=== PATIENT | male | born 1990 | race Caucasian/White ===

== ENCOUNTER 2017-01-04 17:37 | Emergency (ER) | payer MEDICAID ==
[~2017-01-04] VITALS: Ht 182.9 cm; Wt 120.0 kg
[~2017-01-04 17:37] MED LIST: BENT20TA PO; WARF5 PO
[2017-01-04 17:39] VITALS: BP 174/100; PULSE 93; RESP 16; TEMP 98.7; O2SAT 98
--- NOTE | 2017-01-04 18:09 | PD ---
HPI Chief Complaint: Musculoskeletal Complaint Time Seen by Provider: 18:07 Travel History International Travel<30 days: No Contact w/Intl Traveler<30days: No Traveled to known affect area: No History of Present Illness HPI 26yo M c/o R foot and ankle pain x 4 days and calf pain x last 2 days. 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 Denies anticoagulants; stop taking anticoagulant about a year ago because ultrasound was negative for blood clots. He stopped them on his own and was not instructed to stop them by a doctor. Denies new or recent injury. Denies Fever , vomiting. Denies Paraesthesias, loss of sensation, decreased range of motion , decreased strength to the affected extremity. Denies chest pain, shortness of breath, hemoptysis, cough. Denies recent surgery or travel. Has no other medical complaints. No known allergies. No other modifying factors or associated signs and symptoms. PFSH Past Medical History Hx Anticoagulant Therapy: Yes Autoimmune Disease: No Cancer: No Cardiovascular Problems: No Cerebrovascular Accident: No Diminished Hearing: No Endocrine: No Gastrointestinal Disorders: No Genitourinary: No Headaches: No Immune Disorder: No Implanted Vascular Access Dvce: No Musculoskeletal: No Neurologic: No Psychiatric: No Reproductive: No Respiratory: No Immunizations Current: No Migraines: No Seizures: No Past Surgical History Abdominal Surgery: No Cardiac Surgery: No Ear Surgery: No Endocrine Surgery: No Eye Surgery: No Genitourinary Surgery: No Gynecologic Surgery: No Neurologic Surgery: No Oral Surgery: No Thoracic Surgery: No Tonsillectomy: Yes Other Surgery: Yes (THROAT SURGERY) Social History Alcohol Use: No Tobacco Use: Yes (vapor) Substance Use: No Allergies-Medications (Allergen,Severity, Reaction): Coded Allergies: No Known Allergies (Verified , 01/04/17) Reported Meds & Prescriptions Reported Meds & Active Scripts Active Flexeril (Cyclobenzaprine HCl) 10 Mg Tab 10 Mg PO TID PRN 7 Days Ibuprofen 800 Mg Tab 800 Mg PO Q6HR PRN Review of Systems Except as stated in HPI: all other systems reviewed are Neg Physical Exam Narrative GENERAL: Well-nourished, well-developed male patient, in no acute distress; afebrile, nontoxic-appearing SKIN: Warm and dry. HEAD: Atraumatic. Normocephalic. EYES: Pupils equal and round. No scleral icterus. No injection or drainage. ENT: Mucosa pink and moist. Airway patent. NECK: Trachea midline. CARDIOVASCULAR: Regular rate and rhythm. No murmur appreciated. RESPIRATORY: Clear to auscultation. Breath sounds equal bilaterally. No wheezes , rales, or rhonchi heard. GASTROINTESTINAL: Abdomen soft, non-tender, nondistended. Positive bowel sounds. No hepato-splenomegaly, or palpable masses. No guarding. MUSCULOSKELETAL: Right lower extremity supple and non-tense with 2+ pedal pulse and sensory intact. Right foot, ankle, lower leg with mild edema and without erythema or warmth to touch. Reproducible tenderness on palpation to the posterior upper calf. No obvious deformities. No clubbing. No cyanosis. NEUROLOGICAL: Awake and alert. Oriented 3. No obvious cranial nerve deficits. Motor grossly within normal limits. Normal speech. PSYCHIATRIC: Appropriate mood and affect; insight and judgment normal. Data Data Last Documented VS Vital Signs Date Time Temp Pulse Resp B/P Pulse Ox O2 Delivery O2 Flow Rate FiO2 01/04/17 20:13 16 01/04/17 17:39 98.7 93 174/100 98 Orders Us Leg Venous Doppler (01/04/17 ) Ketorolac Inj (Toradol Inj) (01/04/17 18:15) MDM Medical Decision Making Medical Screen Exam Complete: Yes Emergency Medical Condition: Yes Medical Record Reviewed: Yes Differential Diagnosis DVT, superficial thrombosis, leg pain Narrative Course 26-year-old male with right lower leg pain 4 days. Denies injury. Patient does have history of blood clots in his spleen, liver, and heart. He stopped taking anticoagulants a year ago on his own, without instruction by his doctor. Toradol ordered. Right leg venous Doppler ultrasound ordered. 1899: Patient reported off to LATRICE Oropeza at change of shift. See her note for final patient disposition. Scripts Cyclobenzaprine (Flexeril)10 Mg Tab10 Mg PO TID PRN (MUSCLE SPASM) 7 Days Ref 0 Prov:Layne Toth 01/04/17 Ibuprofen 800 Mg [id number] Mg PO Q6HR PRN (PAIN) #40 TAB Ref 0 Prov:Layne Toth 01/04/17 Christina Gonzalez Jan 04, 2017 18:09
[2017-01-04] MEDS ORDERED: KETOROLAC TROMETHAMINE 60 MG/2 ML (IM) VIAL IM ONE (18:15)
--- NOTE | 2017-01-04 19:54 | RADRPT ---
EXAM DATE/TIME: 01/04/2017 18:29 [facility] COMPARISON: No previous studies available for comparison. INDICATIONS : Right leg pain. MEDICAL HISTORY : Deep venous thrombosis. History of anticoagulant therapy. Tobacco use. SURGICAL HISTORY : Tonsillectomy. Throat surgery. ENCOUNTER: Initial ACUITY: 1 week PAIN SCORE: 10/10 LOCATION: Right leg. TECHNIQUE: Venous ultrasound of the leg was performed from the inguinal ligament to the proximal calf. Real-lesa e, color Doppler and spectral tracing, compression and augmentation techniques were used. FINDINGS: There is normal compressibility of the deep venous system from the inguinal region to the proximal ca lf. No echogenic clot is seen in the lumen of the common femoral, femoral, popliteal, and posterior tibial veins. There is a normal response of the venous system to proximal and distal augmentation an d respiration. CONCLUSION: Normal examination. Ervin Harvey MD on January 04, 2017 at 19:52 Board Certified Radiologist. This report was verified electronically.
[2017-01-04] MEDS ORDERED: IBUP800T23 PO (20:04)
[2017-01-04] MEDS ORDERED: CYCL1TAB29 PO (20:04)
--- NOTE | 2017-01-04 20:05 | PD ---
Physical Exam Date Seen by Provider: Jan 04, 2017 Time Seen by Provider: 20:00 Narrative For full history and physical examination please see previous provider's note. I assumed care of this patient had changes shift, at that time an ultrasound was pending to rule out DVT. Data Data Last Documented VS Vital Signs Date Time Temp Pulse Resp B/P Pulse Ox O2 Delivery O2 Flow Rate FiO2 01/04/17 17:39 98.7 93 16 174/100 98 Orders Us Leg Venous Doppler (01/04/17 ) Ketorolac Inj (Toradol Inj) (01/04/17 18:15) [facility] Supervised Visit with LASHONDA: No Interpretation(s) Vital Signs Date Time Temp Pulse Resp B/P Pulse Ox O2 Delivery O2 Flow Rate FiO2 01/04/17 17:39 98.7 93 16 174/100 98 Differential Diagnosis DVT versus strain versus spasm versus fracture versus other Narrative Course Patient is a 26-year-old male presenting for evaluation of leg and ankle pain with no preceding injury or trauma. Patient is a history of blood clots and anticoagulant use which he stopped on his own without medical advice. Ultrasound is negative for DVT. Patient is neurovascularly intact. Patient will be given prescription for anti-inflammatory medication. He is encouraged to follow-up with his primary care provider. He is encouraged to rest, ice, elevate extremity, continue range of motion exercises, avoid exacerbating activities. He was encouraged to return to emergency department for any new or worsening symptoms. Patient verbalizes understanding of instructions. Patient stable for discharge. Diagnosis Primary Impression: Leg pain Qualified Code: M79.606 - Pain of lower extremity, unspecified laterality Referrals: Primary Care Physician 2 days Patient Instructions: General Instructions, Leg Pain (ED) Additional Instruction: Take medications as directed Follow-up with primary doctor Rest, ice, elevate extremity, avoid exacerbating activities Return to emergency department for any new or worsening symptoms Med/Other Pt SpecificInfo: Prescription(s) given Scripts Cyclobenzaprine (Flexeril)10 Mg Tab10 Mg PO TID PRN (MUSCLE SPASM) 7 Days Ref 0 Prov:Layne Toth 01/04/17 Ibuprofen 800 Mg [id number] Mg PO Q6HR PRN (PAIN) #40 TAB Ref 0 Prov:Layne Toth 01/04/17 Disposition: 01 DISCHARGE HOME Condition: Stable Layne Toth Jan 04, 2017 20:04
== END 2017-01-04 20:23 | disposition home or self-care (01) ==
LOC: NEPK 17:37
DX: M79.604 Pain in right leg (principal); Z72.0 Tobacco use; Z86.2 Personal history of diseases of the blood and blood-forming organs and certain disorders involving the immune mechanism
CPT/HCPCS: 93971; 96372; 99285; J1885

== ENCOUNTER 2017-11-23 19:22 | Emergency (ER) | payer MEDICAID, OTHER ==
[~2017-11-23] VITALS: Ht 185.4 cm; Wt 129.5 kg
[~2017-11-23 19:22] MED LIST changes: -BENT20TA PO; +CYCL10TA PO; +IBUP1TAB7 PO; -WARF5 PO
[2017-11-23 19:58] VITALS: BP 168/94; PULSE 84; RESP 16; TEMP 98.3; O2SAT 100
--- NOTE | 2017-11-23 20:40 | PD ---
HPI Chief Complaint: Injury Time Seen by Provider: 20:07 Travel History International Travel<30 days: No Contact w/Intl Traveler<30days: No Traveled to known affect area: No History of Present Illness HPI 27-year-old male presents to the emergency room for evaluation of right ankle pain for the past few weeks. Patient denies any trauma or injury. Pain is moderate in severity. Localized to the ankle and worsened with plantar flexion , inversion, and inversion. No pain with dorsiflexion. No radiation. States he walked around on a broken foot for 3 weeks without knowing it and is concerned he may have broken something. 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 On the weekends his pain is "hit or miss." He has been taking [id number] Advil without relief in symptoms. 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 He does have an appointment with his pit clerk tomorrow. He denies any fever, chills, nausea, vomiting. PFSH Past Medical History Hx Anticoagulant Therapy: Yes Autoimmune Disease: No Cancer: No Cardiovascular Problems: No Cerebrovascular Accident: No Diminished Hearing: No Deep Vein Thrombosis: Yes Endocrine: No Gastrointestinal Disorders: No Genitourinary: No Headaches: No Immune Disorder: No Implanted Vascular Access Dvce: No Musculoskeletal: No Neurologic: No Psychiatric: No Reproductive: No Respiratory: No Immunizations Current: No Migraines: No Seizures: No Tetanus Vaccination: < 5 Years Past Surgical History Abdominal Surgery: No Cardiac Surgery: No Ear Surgery: No Endocrine Surgery: No Eye Surgery: No Genitourinary Surgery: No Gynecologic Surgery: No Neurologic Surgery: No Oral Surgery: Yes (throat surgery ) Thoracic Surgery: No Tonsillectomy: Yes Other Surgery: Yes (THROAT SURGERY) Social History Alcohol Use: No Tobacco Use: Yes Substance Use: No Allergies-Medications (Allergen,Severity, Reaction): Coded Allergies: No Known Allergies (Verified , 01/04/17) Reported Meds & Prescriptions Reported Meds & Active Scripts Active Diclofenac Sodium DR (Diclofenac Sodium) 75 Mg Tabdr 75 Mg PO BID Flexeril (Cyclobenzaprine HCl) 10 Mg Tab 10 Mg PO TID PRN 7 Days Ibuprofen 800 Mg Tab 800 Mg PO Q6HR PRN Review of Systems Except as stated in HPI: all other systems reviewed are Neg Physical Exam Narrative GENERAL: Well-nourished, well-developed male in no acute distress. Afebrile. Ambulatory. SKIN: Focused skin assessment warm/dry. No erythema or ecchymosis. No increased warmth. HEAD: Normocephalic. EYES: No scleral icterus. No injection or drainage. NECK: Supple, trachea midline. No JVD or lymphadenopathy. CARDIOVASCULAR: Regular rate and rhythm without murmurs, gallops, or rubs. RESPIRATORY: Breath sounds equal bilaterally. No accessory muscle use. MUSCULOSKELETAL: No cyanosis. No obvious edema. No calf tenderness. Negative Homans sign. 2+ dorsalis pedis pulse. No pain with dorsiflexion. Moderate pain with plantarflexion, eversion, and inversion. No bony tenderness to palpation of bilateral malleoli. Data Data Last Documented VS Vital Signs Date Time Temp Pulse Resp B/P (MAP) Pulse Ox O2 Delivery O2 Flow Rate FiO2 11/23/17 19:58 98.3 84 16 168/94 (118) 100 Orders Orders Ankle, Complete ([id number]) (11/23/17 ) Ed Discharge Order (11/23/17 21:01) [facility] Medical Decision Making Medical Screen Exam Complete: Yes Emergency Medical Condition: Yes Medical Record Reviewed: Yes Differential Diagnosis Fracture, sprain, strain, DVT, inflammatory arthritis, flatfoot Narrative Course 27-year-old male presents to the emergency room for evaluation of right ankle pain for the past 3 weeks. He denies any trauma or injury. Pain is worsened after he has been on his feet all day. Improves at rest. Physical exam is unremarkable. Right lower extremity is neurovascularly intact with 2+ dorsalis pedis pulse. There is no edema. Negative Homans sign. No bony tenderness to palpation. No erythema or ecchymosis. X-ray is negative. Patient is extremely flat-footed and I suspect his pain is caused by lack of support and issues. He was instructed to use shoe inserts. He has an appointment with his pit clerk tomorrow. Told to follow-up with a pit clerk or return for worsening symptoms. He understands and agrees to plan. Diagnosis Primary Impression: Right ankle pain Qualified Codes: M25.571 - Pain in right ankle and joints of right foot Referrals: Primary Care Physician Additional Instructions: Insert shoe supports. Ibuprofen and Tylenol for pain. Follow up with your pit clerk. Return as needed for worsening symptoms. Scripts Diclofenac Sodium (Diclofenac Sodium DR) 75 Mg Tabdr 75 MG PO BID, #20 TAB 0 Refills Prov: Thomas Hernandez MD 11/23/17 Disposition: 01 DISCHARGE HOME Condition: Stable Erum Lacey November 23, 2017 20:40
[2017-11-23] MEDS ORDERED: DICL75TA PO (21:02)
--- NOTE | 2017-11-23 21:06 | RADRPT ---
EXAM DATE/TIME: 11/23/2017 20:23 [facility] COMPARISON: No previous studies available for comparison. INDICATIONS : Pain with no known injury- One year ago, stress fracture was found on the lateral side of ankle. MEDICAL HISTORY : Stress fracture on lateral side of ankle. Deep vein thrombosis. SURGICAL HISTORY : Tonsillectomy. ENCOUNTER: Initial ACUITY: 1 week PAIN SCORE: 8/10 LOCATION: Right Lateral side of ankle. FINDINGS: Three view exam was performed of the right ankle. The bony structures are in normal alignment. No e vidence of fracture, dislocation. There is mild soft tissue swelling at the ankle. The ankle mortise is intact. There is a mild calcaneal spur at the Achilles attachment site. No radiopaque foreign b odies are seen. Bony mineralization is normal. CONCLUSION: Nonspecific mild soft tissue swelling. Darrell Mckeon MD on November 23, 2017 at 21:03 Board Certified Radiologist. This report was verified electronically.
== END 2017-11-23 21:10 | disposition home or self-care (01) ==
LOC: NEPK 19:22
DX: M25.571 Pain in right ankle and joints of right foot (principal); Z72.0 Tobacco use
CPT/HCPCS: 73610; 99283